=== PATIENT | female | born 1975 | race Caucasian/White ===

== ENCOUNTER 2019-04-02 13:37 | Outpatient (CLI) | payer BC, SELFPAY ==
--- NOTE | 2019-04-02 13:43 | XR_ITS ---
WS: [id number] LUMBAR SPINE FLEXION AND EXTENSION TECHNIQUE: 3 views of the lumbar spine: Lateral neutral, flexion, and extension views. CLINICAL INFORMATION: SPONDYLOLISTHESES, LUMBAR REGION COMPARISON: None. FINDINGS: Reversal normal lumbar lordosis. Disc space narrowing worse at L3-L4 and L4-L5. Slight retrolisthesis L3 on L4 in neutral measuring 4.4 mm. No instability on flexion-extension. XR/XR lumbar spine f/e only [id number] IMPRESSION: No instability on flexion-extension
== END 2019-04-02 13:38 | disposition home or self-care (01) ==
LOC: RADWPI 13:42
PROVIDERS: Family Provider Registered Nurse; PCP Registered Nurse; Visit Provider Nurse Practitioner
DX: M43.16 Spondylolisthesis, lumbar region (principal)
CPT/HCPCS: 72120

== ENCOUNTER 2020-05-17 13:13 | Outpatient (CLI) | payer BC, SELFPAY ==
--- NOTE | 2020-05-17 13:18 | MM_ITS ---
WS: [id number] SCREENING DIGITAL MAMMOGRAM WITH CAD HISTORY: SCREENING COMPARISON: None available. Bilateral CC and MLO views submitted. Computer aided detection analyzed. Breast composition: The breasts are almost entirely fatty. Seen within the superior posterior RIGHT b reast is a 6 mm round nodule which needs further evaluation. This is not seen on the CC projection. MM/[place] [id number] IMPRESSION: BI-RADS: 0-Incomplete: Need additional imaging evaluation FOLLOW UP: Need Additional Imaging RIGHT breast: Spot compression views ( MLO). True ML. Exaggerated RIGHT CC late ral. Ultrasound to follow if abnormality persists.
== END 2020-05-17 13:14 | disposition home or self-care (01) ==
PROVIDERS: PCP Registered Nurse; Visit Provider Registered Nurse
DX: Z12.31 Encounter for screening mammogram for malignant neoplasm of breast (principal); N63.10 Unspecified lump in the right breast, unspecified quadrant
CPT/HCPCS: 77067

== ENCOUNTER 2020-06-22 15:03 | Outpatient (CLI) | payer BC, SELFPAY ==
--- NOTE | 2020-06-22 15:10 | US_ITS ---
WS: [id number] ADDITIONAL VIEWS RIGHT BREAST RIGHT breast ultrasound, limited HISTORY: ABNORMAL MAMMOGRAM COMPARISON: 05/17/2020 Compression views right CC and MLO projection. True ML also submitted. 2 adjacent well-circumscribed nodules are present in the RIGHT axillary tail. The largest measures 7 mm and appears more typical for a lymph node on the additional views. RIGHT breast ultrasound, limited. In the RIGHT axillary tail there are 2 benign lymph nodes. The largest lymph node measures 1.5 cm in length. There are 2 adjacent lymph nodes. No suspicious mass. US/US breast RT limited* [id number] IMPRESSION: BI-RADS: 2-Benign FOLLOW-UP: 1 Year Follow-up
== END 2020-06-22 15:04 | disposition home or self-care (01) ==
LOC: RADSHAW 15:06
PROVIDERS: PCP Registered Nurse; Visit Provider Registered Nurse
DX: R92.8 Other abnormal and inconclusive findings on diagnostic imaging of breast (principal)
CPT/HCPCS: 76642; 77065

== ENCOUNTER 2020-08-07 16:37 | Emergency (ER) | payer BC, SELFPAY ==
[2020-08-07 16:55] VITALS: BP 176/95; PULSE 80; RESP 16; TEMP 37; O2SAT 96; BMI 53.2
--- NOTE | 2020-08-07 17:44 | ED_ITS ---
HPI - Extremity Problem General: Chief complaint: Extremity Problem,Nontraumatic Stated complaint: LEFT SHOULDER PAIN INTO THE BACK Time Seen by Provider: 08/07/20 17:27 Source: patient Mode of arrival: ambulatory Limitations: no limitations History of Present Illness: HPI Narrative: Patient is a nice 44-year-old female who presents to ED today with a complaint of pain around her left shoulder joint. Patient states pain is located to her posterior shoulder and seems to be worse with certain movements and palpation. She tells me that she has a desk job at [employer] and also has a 1-year-old grandbaby living with her that she lifts often. She states she notices a burning sensation that radiates around into the front of her shoulder. She has not had any injury or trauma. She denies any redness or warmth to the shoulder joint. Denies numbness, tingling, loss of sensation to her left upper extremity. MD Complaint: joint pain Onset (ago): week(s) Pain Consistency: constant Location: left and upper extremity Quality: burning Relieving factors: nothing Exacerbating factors: range of motion and palpation Associated symptoms: Reports no associated symptoms; Deny chest pain, fever(s) or rash Review of Systems Const: Denies: fever(s), chills, body aches, fatigue or malaise Card: Denies: chest pain, palpitations, irregular heart rhythm, edema, lightheadedness, syncope, pre-syncope, dyspnea on exertion or orthopnea Resp: Denies: dyspnea or chest congestion GI: Denies: nausea or vomiting Musc: Reports: joint pain (L shoulder); Denies: back pain, extremity swelling, joint swelling, joint redness or joint warmth Skin/Breast: Denies: rash Neuro: Denies: headache(s), numbness in extremities, weakness in extremities or sensory changes Physical Exam Const: COMMON NORMALS: no acute distress, patient oriented x3, no limitations and alert GENERAL APPEARANCE: cooperative NUTRITIONAL APPEARANCE: obese (BMI > 50) morbidly obese ORIENTATION/CONSCIOUSNESS: Yes awake, Yes oriented to person, Yes oriented to place and Yes oriented to time HENMT: COMMON NORMALS: normocephalic and atraumatic HEAD & SCALP: normocephalic and atraumatic Neck/C-Spine: COMMON NORMALS: full ROM CERVICAL SPINE: Yes cervical ROM normal, No Cervical spine tenderness and No step off deformity OTHER: pain to L trapezius musculature with lateral flexion to the right Chest: COMMONS NORMALS: normal inspection of the chest and normal palpation of entire chest wall Resp: COMMON NORMALS: normal respiratory effort and clear to auscultation bilaterally AUSCULTATION: clear to auscultation bilaterally Cardio: COMMON NORMALS: regular rate and regular rhythm RATE: regular rate RHYTHM: regular rhythm Extremity: EXTREMITY IMAGE (BACK): 1. TTP; palpation and ROM of her shoulder joint reproduces pain here Neuro: COMMON NORMALS: patient oriented x3, moves all extremities, no focal motor deficits and no sensory deficits noted SENSORIUM/ORIENTATION: Yes alert, Yes oriented to person, Yes oriented to place and Yes oriented to time Skin: COMMON NORMALS: no rashes or lesions noted GENERAL SKIN EXAM: no rashes or lesions noted TRAUMA: no lacerations or abrasions Course Vital Signs: Vital signs: Vital Signs Temperature 98.6 F 08/07/20 16:55 Pulse Rate 80 08/07/20 16:55 Respiratory Rate 16 08/07/20 16:55 Blood Pressure 176/95 08/07/20 16:55 Pulse Oximetry 96 08/07/20 16:55 MDM - Extremity (Nontraumatic) MDM Narrative: Medical decision making narrative: Will treat with steroids/muscle relaxers. Recommend follow up with PCP-possible referral for PT. Also spoke about utilizing a chiropractor. Discharge Plan Discharge Patient Disposition: Home Clinical Impression: Strain of thoracic back region Condition: Stable Prescriptions: New cyclobenzaprine 10 mg tablet 10 mg PO TID Qty: 14 RF: 0 Medrol (Erik) 4 mg tablets,dose pack See Rx Instructions .ROUTE .COMPLEX Qty: 21 RF: 0 Discharge Orders: Discharge ED (Routine); Ordered 08/07/20 Ordered By: Erika Vidal Referrals: Jenna Elise FNP [Primary Care Provider] - Patient Instructions: Muscle Strain (ED), Thoracic Pain (ED) Coding Level of Care Code ED Application Security Developer for Shey Denis
[2020-08-07] MEDS: ketorolac 60 mg/2 mL INJ IM (18:11)
[2020-08-07] MEDS: orphenadrine 30 mg/mL Inj 2 mL 60 MG IM (18:16)
[2020-08-07 18:20] VITALS: PULSE 76; RESP 18; O2SAT 98
== END 2020-08-07 18:21 | disposition home or self-care (01) ==
PROVIDERS: Emergency Provider Physician Assistant; PCP Registered Nurse
DX: S29.012A Strain of muscle and tendon of back wall of thorax, initial encounter (principal); X50.0XXA Overexertion from strenuous movement or load, initial encounter
CPT/HCPCS: 96372; 99283; J1885; J2360

== ENCOUNTER 2020-11-20 23:08 | Emergency (ER) | payer BC, SELFPAY ==
[2020-11-20 23:13] VITALS: BP 173/110; PULSE 90; RESP 18; TEMP 36; O2SAT 97; BMI 52.4
--- NOTE | 2020-11-20 23:18 | XRR_ITS ---
PROCEDURE INFORMATION: Exam: XR Chest Exam date and time: 11/20/2020 11:18 PM Age: 45 years old Clinical indication: Cough TECHNIQUE: Imaging protocol: XR of the chest. Views: 1 view. COMPARISON: CT abdomen pelvis w con* [id number] 10/29/2018 6:54 PM FINDINGS: Lungs: There is mild bronchial wall thickening seen and some subtle increased interstitial opacities are present bilaterally, findings that could represent mild bronchitis and pneumonitis or atelectasis. Pleural spaces: Unremarkable. No pleural effusion. No pneumothorax. Heart/Mediastinum: Unremarkable. No cardiomegaly. Bones/joints: Unremarkable. XR/XR chest 1V portable [id number] IMPRESSION: Probable mild bronchitis and pneumonitis or atelectasis. Radiation Dose CTDIVOL = (mGy): DLP = (mGy-cm)
--- NOTE | 2020-11-20 23:26 | ECG_ITS ---
[facility] Test Date: 2020-11-20 Pat Name: Sujatha Nunez Department: Room: Gender: Female Bag Shaker: : 1975 Requested By: Jackie Bajwa Order Number: [id number] Lorene MD: Jackelyn Wilder M.D. Measurements Intervals [place] Rate: 81 P: 26 SC: 112 QRS: 30 QRSD: 88 T: 75 QT: 361 QTc: 419 Interpretive Statements SINUS RHYTHM WITH SHORT SC INTERVAL NONSPECIFIC ST & T-WAVE ABNORMALITY No previous ECG available for comparison Electronically Signed On 11-21-2020 21:06:34 CDT by Jackelyn Wilder M.D. [email or web address]
--- NOTE | 2020-11-20 23:27 | W.ED.URI ---
HPI - URI/Sore Throat General: Chief Complaint: Upper Respiratory Infection Stated Complaint: Dry Cough\Chest Hurts Time Seen by Provider: 11/20/20 23:18 Source: patient Mode of arrival: ambulatory Limitations: no limitations History of Present Illness: HPI Narrative: 45-year-old female who states over the last 2 days has been having a dry cough. She states she is now having slight burning in her chest with a cough and feeling like she cannot get a deep breath in. She denies any shortness of breath or fever. States that multiple sick contacts and her daughter has had a similar cough had a negative Covid test. Patient is resting comfortably she is a former smoker. Denies any abdominal pain or vomiting or diarrhea. Associated symptoms: Deny abdominal pain, chills, chest pain, diarrhea, fever(s), headache(s), nausea or vomiting Review of Systems Const: Denies: fever(s), chills, body aches or change in appetite Eyes: Denies: blurry vision or eye discomfort ENMT: Denies: throat pain or dental pain Card: Denies: chest pain Resp: Reports: non-productive cough; Denies: dyspnea GI: Denies: abdominal pain, nausea, vomiting or diarrhea : Denies: dysuria Musc: Denies: neck pain or back pain Skin/Breast: Denies: rash Neuro: Denies: headache(s) Psych: Denies: depression Иван/Lymph: Denies: easy bruising All/Imm: Denies: urticaria Physical Exam Const: COMMON NORMALS: no acute distress, patient oriented x3 and healthy appearing HENMT: COMMON NORMALS: normocephalic and atraumatic HEAD & SCALP: normocephalic and atraumatic Eye: COMMON NORMALS: Equal, round and reactive pupils present and EOMs intact bilaterally PUPIL: Yes Equal, round and reactive pupils present Neck/C-Spine: COMMON NORMALS: full ROM and supple Chest: COMMONS NORMALS: normal inspection of the chest and normal palpation of entire chest wall Resp: COMMON NORMALS: normal respiratory effort, No retractions, No use of accessory muscles and clear to auscultation bilaterally AUSCULTATION: clear to auscultation bilaterally Cardio: COMMON NORMALS: regular rate, regular rhythm and No murmurs present (Cardio) RATE: regular rate RHYTHM: regular rhythm GI: COMMON NORMALS: Normal to inspection, nondistended, normoactive bowel sounds present, Soft to palpation, non-tender and no masses PALPATION: Yes Soft to palpation Extremity: COMMON NORMALS: normal to inspection and full ROM Neuro: COMMON NORMALS: patient oriented x3, moves all extremities and no focal motor deficits Psych: COMMON NORMALS: mental status grossly normal, Normal thought process present and cooperative THOUGHT PROCESS: Normal thought process present Skin: COMMON NORMALS: no rashes or lesions noted and no wounds GENERAL SKIN EXAM: no rashes or lesions noted Course Vital Signs: Vital signs: Vital Signs Temperature 96.8 F L 11/20/20 23:13 Pulse Rate 90 11/20/20 23:13 Respiratory Rate 18 11/20/20 23:13 Blood Pressure 173/110 11/20/20 23:13 Pulse Oximetry 97 11/20/20 23:13 MDM - URI/Sore Throat MDM Narrative: Medical decision making narrative: Patient presents here with cough x-ray does show perihilar infiltrate right stable versus bacterial we will treat with doxycycline. She has no signs of pulmonary embolism and no chest pain. She is stable for discharge is to follow-up PCP and return if worsening. Imaging Data^: CXR: Attestation: I personally reviewed and interpreted this imaging study as follows: My impression: rll infiltrate viral vs vacterial EKG Data^: EKG 1: Attestation: I personally reviewed and interpreted this EKG as follows: EKG interpretation date: 11/20/20 EKG interpretation time: 23:30 Interpretation: nsr hr [address] or t wave abnormalities qrs 88 qtc 398 Discharge Plan Discharge Patient Disposition: Home Clinical Impression: Pneumonia Qualifiers: Pneumonia type: due to unspecified organism Laterality: right Lung location: lower lobe of lung Qualified Code(s): J18.9 - Pneumonia, unspecified organism Condition: Stable Prescriptions: New doxycycline hyclate 100 mg tablet 100 mg PO BID 7 Days Qty: 14 RF: 0 No Action cyclobenzaprine 10 mg tablet 10 mg PO TID Qty: 14 RF: 0 Medrol (Erik) 4 mg tablets,dose pack See Rx Instructions .ROUTE .COMPLEX Qty: 21 RF: 0 Discharge Orders: Discharge ED (Routine); Ordered 11/20/20 Ordered By: Jackie Bajwa Discharge Diet: Advance as tolerated Discharge Activity: Resume usual activity Patient Instructions: Pneumonia (ED) Coding Level of Care Code ED Chemistry Associate for Anandag Fwd Exam Comprehensive
[2020-11-20] MEDS: doxycycline 100 mg Tablet PO (23:43)
[2020-11-21 00:11] VITALS: BP 145/87; PULSE 89; RESP 18; TEMP 36; O2SAT 97
== END 2020-11-20 23:52 | disposition home or self-care (01) ==
PROVIDERS: Emergency Provider Emergency Medicine
DX: J18.9 Pneumonia, unspecified organism (principal)
CPT/HCPCS: 71045; 93005; 99283

== ENCOUNTER 2021-02-08 15:57 | Emergency (ER) | payer BC, SELFPAY ==
[2021-02-08 16:32] VITALS: BP 189/83; PULSE 82; RESP 16; TEMP 36.6; O2SAT 98
--- NOTE | 2021-02-08 18:24 | XRR_ITS ---
PROCEDURE INFORMATION: Exam: XR Chest Exam date and time: 02/08/2021 6:24 PM Age: 45 years old Clinical indication: Cough TECHNIQUE: Imaging protocol: XR of the chest. Views: 1 view. COMPARISON: CR XR chest 1V portable [id number] 11/20/2020 11:35 PM FINDINGS: Lungs: Unremarkable. No consolidation. Pleural spaces: Unremarkable. No pleural effusion. No pneumothorax. Heart/Mediastinum: Unremarkable. No cardiomegaly. Bones/joints: Unremarkable. XR/XR chest 1V portable [id number] IMPRESSION: No acute findings.
--- NOTE | 2021-02-08 18:30 | W.ED.URI ---
HPI - URI/Sore Throat General: Chief Complaint: Upper Respiratory Infection Stated Complaint: Tight chest, coughing for about week Time Seen by Provider: 02/08/21 18:24 History of Present Illness: HPI Narrative: Patient is a 45-year-old female comes to the ED with cough and congestion. Symptoms started approximately a week and a half ago. She reports having some nasal congestion and cough. Cough has become little more productive now and she reports some yellowish-green sputum. Cough is worse at night. She says she has history of bronchitis especially around this time a year and she says this is how her past bronchitis episodes of been. Denies any fever, chills, body aches, nausea/vomiting, bladder or bowel symptoms. Patient has been fully vaccinated for COVID-19. Associated symptoms: Reports nasal congestion; Deny abdominal pain, chills, chest pain, diarrhea, fever(s), headache(s), nausea or vomiting Review of Systems Const: Denies: fever(s), chills or fatigue Eyes: Denies: change in vision or eye discomfort ENMT: Reports: nasal congestion; Denies: throat pain or odynophagia Card: Denies: chest pain, palpitations, edema, swelling of feet/ankles, dyspnea on exertion or orthopnea Resp: Reports: productive cough (Productive cough with a yellowish-green sputum.); Denies: dyspnea or non-productive cough GI: Denies: abdominal pain, nausea, vomiting, diarrhea, constipation or hematochezia : Denies: flank pain, dysuria or hematuria Musc: Denies: neck pain, back pain or extremity swelling Skin/Breast: Denies: rash or new lesions Neuro: Denies: headache(s), numbness in extremities or weakness in extremities Physical Exam Narrative: EXAM NARRATIVE: Patient appears nontoxic, happy and healthy and in no acute distress or pain. Const: COMMON NORMALS: no acute distress, patient oriented x3 and alert GENERAL APPEARANCE: cooperative and comfortable HENMT: COMMON NORMALS: normocephalic HEAD & SCALP: normocephalic MOUTH: Normal oral and palatal mucosa present THROAT: posterior oropharynx normal and uvula midline Eye: COMMON NORMALS: Equal, round and reactive pupils present PUPIL: Yes Equal, round and reactive pupils present Neck/C-Spine: COMMON NORMALS: supple GENERAL: Yes normal visual inspection Resp: COMMON NORMALS: normal respiratory effort, No retractions, No use of accessory muscles and clear to auscultation bilaterally EFFORT & INSPECTION: Yes able to speak in complete sentences, No tachypneic, No respiratory distress and No labored AUSCULTATION: clear to auscultation bilaterally Cardio: COMMON NORMALS: regular rate, regular rhythm, S1 normal heart sound present, S2 normal heart sound present, No gallops present (Cardio), No clicks present (Cardio), No murmurs present (Cardio) and Peripheral pulses 2+ throughout RATE: regular rate RHYTHM: regular rhythm HEART SOUNDS: S1 normal heart sound present and S2 normal heart sound present PERIPHERAL PULSES: Peripheral pulses 2+ throughout GI: COMMON NORMALS: Normal to inspection, nondistended, normoactive bowel sounds present, Soft to palpation, non-tender and no masses PALPATION: Yes Soft to palpation : COMMON NORMALS: Yes no CVA tenderness BLADDER/KIDNEY EXAM: Yes no CVA tenderness Back/Pelvis: COMMON NORMALS: no CVA tenderness Extremity: COMMON NORMALS: normal to inspection Neuro: COMMON NORMALS: patient oriented x3 and moves all extremities SENSORIUM/ORIENTATION: Yes alert Skin: GENERAL SKIN EXAM: dry skin Course Vital Signs: Vital signs: Vital Signs Temperature 97.9 F 02/08/21 16:32 Pulse Rate 82 02/08/21 16:32 Respiratory Rate 16 02/08/21 16:32 Blood Pressure 189/83 02/08/21 16:32 Pulse Oximetry 98 02/08/21 16:32 MDM - URI/Sore Throat MDM Narrative: Medical decision making narrative: Patient is a 45-year-old female comes to the ED with cough and congestion. Symptoms started approximately a week and a half ago. She reports having some nasal congestion and cough. Cough has become little more productive now and she reports some yellowish-green sputum. Cough is worse at night. She says she has history of bronchitis especially around this time a year and she says this is how her past bronchitis episodes of been. Denies any fever, chills, body aches, nausea/vomiting, bladder or bowel symptoms. Patient has been fully vaccinated for COVID-19. Exam patient is benign and she appears nontoxic in no acute distress or pain. Lungs are clear to auscultation bilaterally. Chest x-ray shows no acute findings. Patient diagnosed with bronchitis and discharged home with a prescription for Tessalon Perles, azithromycin and prednisone. She is told to follow-up with her PCP 7 to 10 days for reevaluation. Return to ED precautions given. Patient understood and agree with plan. Imaging Data^: CXR: Attestation: I personally reviewed and interpreted this imaging study as follows: Radiologist's impression: [address] [place] [address] XRay Report Signed Patient: Sujatha Nunez Unit #: [id number] : 1975 Age/Sex: 45 / F ADM Date: 02/08/21 Loc: ER Room/Bed: Attending Dr: Ordering Provider/Ordering MD: Winston Kennedy Date of Service: 02/08/21 Procedure(s): XR chest 1V portable [id number] Accession Number(s): [id number] Report Number: [id number] PROCEDURE INFORMATION: Exam: XR Chest Exam date and time: 02/08/2021 6:24 PM Age: 45 years old Clinical indication: Cough TECHNIQUE: Imaging protocol: XR of the chest. Views: 1 view. COMPARISON: CR XR chest 1V portable [id number] 11/20/2020 11:35 PM FINDINGS: Lungs: Unremarkable. No consolidation. Pleural spaces: Unremarkable. No pleural effusion. No pneumothorax. Heart/Mediastinum: Unremarkable. No cardiomegaly. Bones/joints: Unremarkable. XR/XR chest 1V portable [id number] IMPRESSION: No acute findings. Dictated By: Gentry Gonzales DO Signed By: Gentry Gonzales DO Signed Date/Time: 02/08/211843 DD/ 23 Discharge Plan Discharge Patient Disposition: Home Clinical Impression: Bronchitis Condition: Stable Prescriptions: New azithromycin 250 mg tablet 250 mg PO DAILY 4 Days Qty: 4 RF: 0 prednisone 20 mg tablet 20 mg PO BID 5 Days Qty: 10 RF: 0 Tessalon Perles 100 mg capsule 100 mg PO QID PRN (Reason: cough) Qty: 20 RF: 0 No Action cyclobenzaprine 10 mg tablet 10 mg PO TID Qty: 14 RF: 0 Medrol (Erik) 4 mg tablets,dose pack See Rx Instructions .ROUTE .COMPLEX Qty: 21 RF: 0 Discharge Orders: Discharge ED (Routine); Ordered 02/08/21 Ordered By: Winston Kennedy Discharge Diet: Regular Discharge Activity: Resume usual activity Patient Instructions: Acute Bronchitis (ED) Activity Restrictions/Additional Instructions: Follow-up with medical provider as directed in 7 to 10 days for reevaluation. Take medications as prescribed. Return to the ER or your medical provider if condition worsens. Please read and understand discharge instructions. Thank you for choosing [facility] for your healthcare needs today. Please realize this is an emergency room and that we are providing you with a medical screening exam and this may not be complete and all inclusive of all the testing and or work up that you may need to determine your ailment or severity of your illness. It is very important that you follow up as instructed or that you return to the Emergency Department should you have concerns or if your condition changes or worsens in any way. Coding Level of Care Code ED Assistant Auto Center Manager for Shey Fwd Exam Comprehensive
[2021-02-08] MEDS: azithromycin 250 mg Tablet 500 MG PO (19:05)
[2021-02-08] MEDS: benzonatate 100 mg Capsule PO (19:06)
== END 2021-02-08 19:25 | disposition home or self-care (01) ==
PROVIDERS: Emergency Provider Physician Assistant
DX: J40 Bronchitis, not specified as acute or chronic (principal)
CPT/HCPCS: 71045; 96372; 99283; J2930; Q0144

== ENCOUNTER → 2022-12-07 10:07 | Outpatient (BNVA) | payer OTHER, SELFPAY | PROVIDERS: Visit Provider Family Medicine Adult Medicine | DX: I10 Essential (primary) hypertension (principal); E03.9 Hypothyroidism, unspecified; R06.83 Snoring; R53.83 Other fatigue | CPT/HCPCS: 80053; 80061; 84443; 85025 ==

== ENCOUNTER 2024-05-19 05:11 | Emergency (ER) | payer MEDICAID, SELFPAY ==
[2024-05-19 05:21] VITALS: BP 202/87; PULSE 95; RESP 18; TEMP 36.8; O2SAT 98; BMI 54.8
[2024-05-19 05:50] VITALS: RESP 20; O2SAT 100
[2024-05-19] MEDS: amoxicillin-clav 875-125 mg Tablet 1 TAB PO (05:50)
[2024-05-19] MEDS: oxyCODONE-APAP 5-325 mg Tablet 2 TAB PO (05:50)
--- NOTE | 2024-05-19 05:50 | W.ED.DENTAL ---
HPI - Dental/Oral General: Chief complaint: Dental/Oral Stated complaint: Tooth Pain Time Seen by Provider: 05/19/24 05:28 History of Present Illness: 48-year-old female with 2 days of left upper bicuspid pain. She notes that the tooth is broken, and she has had problems with it in the past. She says for 2 days it has been swollen, at the gum, and increasingly painful. No fever. No vomiting. No tongue swelling, no shortness of breath. Related Data Previous Rx's ?Medication ?Instructions ?Recorded citalopram 40 mg tablet 40 mg PO DAILY mental health #90 04/11/23 tabs levothyroxine 200 mcg tablet See Rx Instructions .Route 10/09/23 .COMPLEX #30 tabs levothyroxine 25 mcg tablet See Rx Instructions .Route 10/09/23 .COMPLEX #30 tabs lisinopril 5 mg tablet See Rx Instructions .Route 10/09/23 .COMPLEX #30 tabs amoxicillin 875 mg-potassium 1 tab PO BID #20 tabs 05/19/24 clavulanate 125 mg tablet ketorolac 10 mg tablet 10 mg PO TID PRN pain #10 tabs 05/19/24 Allergies Allergy/AdvReac Type Severity Reaction Status Date / Time codeine Allergy ALGY-Hives Verified 12/07/22 09:31 [facility] PFSH: Medical History (Updated 05/19/24 @ 05:44 by Vince Arteaga DO) Dyslipidemia (high LDL; low HDL) Fatigue Loud snoring Anxiety and depression Hypothyroid Lower back pain Hypertension Adult BMI 50.0-59.9 kg/sq m Surgical History (Updated 10/19/22 @ 09:22 by Kailash Best MD) History of cholecystectomy Hx of tubal ligation Family History (Updated 10/19/22 @ 09:17 by Concepcion Garcia LPN) Father CAD (coronary artery disease) Cancer Mother Chronic kidney disease (CKD) Renal failure Depression Social History (Updated 10/19/22 @ 09:18 by Concepcion Garcia LPN) Smoking and tobacco/nicotine status: former use of tobacco/nicotine Quit status (tobacco/nicotine): has quit using Second hand smoke exposure: No Alcohol intake: current Alcohol intake frequency: holidays/special occasions only Alcohol type: beer Substance/Drug Use: never Physical Exam Const: COMMON NORMALS: no acute distress GENERAL APPEARANCE: cooperative; not ill appearing HENMT: COMMON NORMALS: normocephalic, atraumatic and Normal external nose present HEAD & SCALP: normocephalic and atraumatic FACE & SINUS: normal facial exam and face symmetric; no erythema and no edema NOSE: Normal external nose present and Normal nares present TEETH & GINGIVA: Yes abnormal tooth and associated gingiva (Abscess upper left) and Yes poor dentition Chest: CHEST: Yes Symmetrical chest wall rise Resp: COMMON NORMALS: normal respiratory effort EFFORT & INSPECTION: No tachypneic and No respiratory distress Cardio: COMMON NORMALS: regular rate and regular rhythm RATE: regular rate RHYTHM: regular rhythm Course Vital Signs: Vital signs: Vital Signs Temperature 98.2 F 05/19/24 05:21 Pulse Rate 95 05/19/24 05:21 Respiratory Rate 18 05/19/24 05:21 Blood Pressure 202/87 05/19/24 05:21 Pulse Oximetry 98 05/19/24 05:21 Oxygen Delivery Me thod Room Air 05/19/24 05:21 MDM - Dental/Oral Medical Decision Making Small abscess upper left jaw. Visible. No drainage. No surrounding facial edema. No airway compromise. Antibiotics. Pain control. Dental follow-up. No radiology studies performed this visit Discharge Plan Discharge Patient Disposition: Home Clinical Impression: Dental abscess Condition: Stable Prescriptions: New amoxicillin-pot clavulanate 875-125 mg tablet 1 tab PO BID Qty: 20 0RF ketorolac 10 mg tablet 10 mg PO TID PRN (Reason: pain) Qty: 10 0RF No Action citalopram 40 mg tablet 40 mg PO DAILY Qty: 90 1RF levothyroxine 25 mcg tablet See Rx Instructions .ROUTE .COMPLEX Qty: 30 5RF Dose Instruction: TAKE 1 TABLET BY MOUTH EVERY DAY WITH 200MCG DOSE FOR 225MCG EVERY DAY FOR HYPOTHYROID Rx Instructions: TAKE 1 TABLET BY MOUTH EVERY DAY WITH 200MCG DOSE FOR 225MCG EVERY DAY FOR HYPOTHYROID levothyroxine 200 mcg tablet See Rx Instructions .ROUTE .COMPLEX Qty: 30 5RF Dose Instruction: TAKE 1 TABLET BY MOUTH EVERY DAY Rx Instructions: TAKE 1 TABLET BY MOUTH EVERY DAY lisinopril 5 mg tablet See Rx Instructions .ROUTE .COMPLEX Qty: 30 5RF Dose Instruction: TAKE 1 TABLET BY MOUTH EVERY DAY Rx Instructions: TAKE 1 TABLET BY MOUTH EVERY DAY Discharge Orders: Discharge ED (Routine); Ordered 05/19/24 Ordered By: Vince Arteaga Referrals: Luana Santamaria, IN [facility] [Primary Care Provider] - Patient Instructions: Dental Abscess (ED), Opioid Safety, Pain Management Activity Restrictions/Additional Instructions: Medication as directed. See your doctor if problems. Print Language: Mauritanian Coding Level of Care Code ED Manager Of Maintenance for Shey Denis
[2024-05-19] MEDS: dexamethasone 10 mg/mL INJ 8 MG PO (05:51)
[2024-05-19 05:57] VITALS: BP 180/77; PULSE 90; O2SAT 98
== END 2024-05-19 05:58 | disposition home or self-care (01) ==
PROVIDERS: Emergency Provider Emergency Medicine; PCP Nurse Practitioner Family
DX: K04.7 Periapical abscess without sinus (principal); Z87.891 Personal history of nicotine dependence; E78.5 Hyperlipidemia, unspecified; I10 Essential (primary) hypertension
CPT/HCPCS: 99283; J1100; J9999

== ENCOUNTER 2024-08-04 11:01 | Outpatient (CLI) | payer MEDICAID, SELFPAY ==
--- NOTE | 2024-08-04 11:06 | MM_ITS ---
WS: [id number] BILATERAL 3D TOMOSYNTHESIS DIGITAL SCREENING MAMMOGRAM WITH CAD CLINICAL INFORMATION: SCREENING HISTORY: Screening mammogram. No current complaints. COMPARISON: 2020 TECHNIQUE: Bilateral CC and MLO views. FINDINGS: Fatty-replaced breasts bilaterally. No suspicious focal mass, asymmetry, calcifications, or architectural distortion. No evidence of malignancy. MM/MM scr BI tomosynthesis [id number] IMPRESSION: DENSITY: The breasts are almost entirely fatty. BI-RADS: 1 - Negative. FOLLOW UP: 1 Year Follow-up Recommend return to annual screening mammography.
== END 2024-08-04 11:02 | disposition home or self-care (01) ==
LOC: RAD 11:01
PROVIDERS: PCP Nurse Practitioner Family; Visit Provider Nurse Practitioner Family
DX: Z12.31 Encounter for screening mammogram for malignant neoplasm of breast (principal); R92.313 Mammographic fatty tissue density, bilateral breasts
CPT/HCPCS: 77063; 77067